=== PATIENT | female | born 1985 | race Two or more races ===

== ENCOUNTER 2019-08-20 08:43 | Emergency (ER) | payer OTHER ==
[~2019-08-20] VITALS: Ht 162.6 cm; Wt 68.5 kg
[~2019-08-20 08:43] MED LIST: CELEBREX200MG PO; DICLOFENAC POTA50 MG PO; NEURONTIN300 MG PO; SKELAXIN800 MG PO; TRAMADOL HCL50 MG PO
[2019-08-20] MEDS ORDERED: DIVALPROEX SOD500 MG (08:51)
[2019-08-20] MEDS ORDERED: VENLAFAXINE HCL75 M2 (08:51)
[2019-08-20] MEDS ORDERED: VITAMIN C100 MG (08:52)
[2019-08-20] MEDS ORDERED: PROTONIX40 M1 (08:52)
[2019-08-20] MEDS ORDERED: VITAMIN D34000 UNIT (08:53)
== END 2019-08-20 10:34 | disposition home or self-care (01) ==
LOC: ER 08:43
DX: F41.0 Panic disorder [episodic paroxysmal anxiety] (principal); R06.02 Shortness of breath

== ENCOUNTER 2020-05-06 07:50 | Emergency (ER) | payer OTHER ==
[~2020-05-06] VITALS: Ht 162.6 cm; Wt 72.6 kg
[~2020-05-06 07:50] MED LIST changes: +DIVALPROEX SOD500 MG; +PROTONIX40 M1; +VENLAFAXINE HCL75 M2; +VITAMIN C100 MG; +VITAMIN D34000 UNIT
[2020-05-06] MEDS ORDERED: KETO10TA2 PO (10:47)
[2020-05-06] MEDS ORDERED: SKELAXIN800 MG PO (10:47)
== END 2020-05-06 11:09 ==
LOC: ER 07:50
DX: S20.213A Contusion of bilateral front wall of thorax, initial encounter (principal); M54.2 Cervicalgia; W18.09XA Striking against other object with subsequent fall, initial encounter; Y93.89 Activity, other specified; Y92.098 Other place in other non-institutional residence as the place of occurrence of the external cause; Y99.8 Other external cause status

== ENCOUNTER 2020-07-11 10:44 | Emergency (ER) | payer OTHER ==
[~2020-07-11] VITALS: Ht 162.6 cm; Wt 72.6 kg
[~2020-07-11 10:44] MED LIST changes: +KETO10TA2 PO
[2020-07-11] MEDS ORDERED: PEPCID AC20 MG PO (16:16)
[2020-07-11] MEDS ORDERED: PREVACID30 MG PO (16:16)
[2020-07-11] MEDS ORDERED: ONDANSETRON ODT4 MG PO (16:16)
== END 2020-07-11 19:50 | disposition home or self-care (01) ==
LOC: ER 10:44
DX: K29.70 Gastritis, unspecified, without bleeding (principal); Z11.52 Encounter for screening for COVID-19